=== PATIENT | female | born 1955 | race Caucasian/White ===

== ENCOUNTER 2017-02-15 09:02 | Outpatient (CLI) | payer OTHER ==
--- NOTE | 2017-02-15 11:58 | RAD ---
CERVICAL SPINE THREE VIEWS: History: Follow up. Comparison: None. FINDINGS: Open mouth odontoid view is normal. Satisfactory appearance of the ACDF hardware at C6-7 with normal location of the discectomy cage. Mild facet arthrosis at C5-6 and C6-7. No abnormal listhesis. IMPRESSION: Satisfactory appearance post ACDF at C6-7. POS: [facility]
== END 2017-02-15 09:03 | disposition home or self-care (01) ==
LOC: TBSIIMAG 09:02
PROVIDERS: ATTEND Neurological Surgery
DX: M54.12 Radiculopathy, cervical region (principal); Z98.1 Arthrodesis status
CPT/HCPCS: 72040

== ENCOUNTER 2017-05-20 11:07 | Emergency (ER) | payer OTHER ==
--- NOTE | 2017-05-20 11:43 | RAD ---
CHEST ONE VIEW: History: Chest pain. Comparison: 05-17-17 FINDINGS: Lungs are clear. No pneumothorax or effusion. Cardiac silhouette and mediastinal contours are within normal limits. IMPRESSION: No acute intrathoracic abnormality. POS: OFF
[2017-05-20 11:55] LABS: #Eosinphils 0.3 thou/uL (0.0-0.7); #Lymphocytes 1.8 thou/uL (1.20-3.40); #Monocytes 0.6 thou/uL (0.11-0.59); #Neutrophils 4.6 thou/uL (1.40-6.50); %Basophils 0.7 % (0.0-1.0); %Lymphocytes 25.2 % (21.0-51.0); %Monocytes 7.5 % (0.0-10.0); %Neutrophils 62.7 % (42.0-75.0); Hemoglobin 13.3 g/dL (12.0-16.0); Mean Corpuscular HGB CONC 32.8 g/dL (32.0-36.0); Mean Corpuscular Hemoglobin 33.1 pg (27.0-31.0); Mean Platelet Volume 5.8 fL (7.4-10.4); Platelet Count 423 thou/uL (130-400); RBC Distribution Width 10.8 % (11.5-14.5); Red Blood Cell (RBC) Count 4.01 mill/uL (4.20-5.40); White Blood Cell (WBC) Count 7.3 thou/uL (4.8-10.8)
[2017-05-20] MEDS ORDERED: Aspirin 325 MG TAB ONE (11:55)
[2017-05-20 12:16] LABS: ALT (SGPT) 13 U/L (8-55); AST (SGOT) 18 U/L (5-34); Albumin 4.3 g/dL (3.5-5.0); Alkaline Phosphatase 65 U/L (40-150); Anion Gap 14 mmol/L (10-20); BUN (Urea Nitrogen) 16 mg/dL (9.8-20.1); Bilirubin, Total 0.7 mg/dL (0.2-1.2); CK (CPK) 104 U/L (29-168); Calc. Creatinine Clearance 0 mL/min (70-130); Calcium 10.3 mg/dL (7.8-10.44); Carbon Dioxide 26 mmol/L (22-29); Chloride 104 mmol/L (98-107); Estimated GFR-MDRD 76; Glucose 100 mg/dL (70-105); Potassium 5.3 mmol/L (3.5-5.1); Protein, Total 7.3 g/dL (6.0-8.3); Sodium 139 mmol/L (136-145)
[2017-05-20 12:20] LABS: Troponin I Less than 0.010 ng/mL (< 0.028)
== END 2017-05-20 13:20 | disposition home or self-care (01) ==
LOC: ERS 11:07
DX: R07.9 Chest pain, unspecified (principal); Z79.899 Other long term (current) drug therapy
CPT/HCPCS: 36415; 71045; 80053; 82550; 82553; 84484; 85025; 93005; 94760

== ENCOUNTER 2017-05-31 09:41 | Outpatient (CLI) | payer OTHER ==
[2017-05-31] MEDS ORDERED: Iopamidol 370 76% 100 ML VIAL ONE (14:49)
== END 2017-05-31 09:42 | disposition home or self-care (01) ==
LOC: TBSIIMAG 09:41
PROVIDERS: ATTEND Internal Medicine Cardiovascular Disease
DX: R94.39 Abnormal result of other cardiovascular function study (principal); R06.09 Other forms of dyspnea
CPT/HCPCS: 75574

== ENCOUNTER 2017-05-31 11:36 | Outpatient (CLI) | payer OTHER | END 2017-05-31 11:37 | disposition home or self-care (01) | LOC: BICMAMMO 11:36 | PROVIDERS: ATTEND Family Medicine | DX: Z12.31 Encounter for screening mammogram for malignant neoplasm of breast (principal) | CPT/HCPCS: 77063; 77067 ==

== ENCOUNTER 2017-07-20 10:09 | Outpatient (CLI) | payer OTHER ==
[2017-07-20] MEDS ORDERED: ISOVUE-370 76%-LOCM 1 ML ONE (10:45)
== END 2017-07-20 10:10 | disposition home or self-care (01) ==
LOC: CT 10:09
PROVIDERS: ATTEND Internal Medicine Cardiovascular Disease
DX: R94.30 Abnormal result of cardiovascular function study, unspecified (principal)
CPT/HCPCS: 75574; 82565

== ENCOUNTER → 2018-02-15 | Day surgery (SDC) | payer OTHER | LOC: ENDO/OP 07:55 | PROVIDERS: ATTEND Internal Medicine Gastroenterology | DX: K21.9 Gastro-esophageal reflux disease without esophagitis (principal); S14.8XXA Injury of other specified nerves of neck, initial encounter; Z98.1 Arthrodesis status; Z79.899 Other long term (current) drug therapy; Z88.0 Allergy status to penicillin; Z88.6 Allergy status to analgesic agent | CPT/HCPCS: 91034 ==

== ENCOUNTER 2018-05-04 12:41 | Outpatient (CLI) | payer OTHER ==
[~2018-05-04 12:41] MED LIST: Iopamidol 370 76% 100 ML VIAL ONE
--- NOTE | 2018-05-04 15:50 | MRI ---
PRE AND POSTCONTRAST ENHANCED MRI IMAGES CERVICAL SPINE 05/04/18 HISTORY: Fusion. Neck pain. Numbness. Multiplanar and multisequence pre and postcontrast enhanced MRI images cervical spine obtained. Images demonstrate the spinal cord to be unremarkable with no evidence of masses or lesions. C1-2: Unremarkable. C2-3: There is a mild broad based disc bulge. The central canal and neural foramen are patent. C3-4: Disc desiccation seen. There is a broad based disc osteophyte complex centrally resulting in mi ld central stenosis. Mild right sided neural foraminal narrowing seen. The left neural foramen is pat ent. C4-5: Disc desiccation seen. There is a broad based disc osteophyte complex seen centrally compressin g the thecal sac resulting in moderate degree of central stenosis. There is severe bilateral C4-5 tanya ral foraminal narrowing due to uncovertebral osteophyte hypertrophy. C5-6: There is disc desiccation seen. There is a broad based disc osteophyte complex centrally compr essing the thecal sac resulting in moderate to severe central and lateral recess stenosis. There is m oderate severe bilateral C5-6 neural foraminal narrowing due to osteophyte encroachment. C6-7: ACDF is seen. The central canal and neural foramen are patent. C7-T1: Unremarkable. IMPRESSION: C4-5 and C5-6 central and neural foraminal narrowing as described above. POS: [facility]
== END 2018-05-04 12:42 | disposition home or self-care (01) ==
LOC: SCSMRI 12:41
PROVIDERS: ATTEND Neurological Surgery
DX: M54.12 Radiculopathy, cervical region (principal); M48.02 Spinal stenosis, cervical region
CPT/HCPCS: 72156; 82565; Q9967

== ENCOUNTER 2018-06-01 08:48 | Outpatient (CLI) | payer OTHER, SELFPAY ==
--- NOTE | 2018-06-01 09:20 | MMO ---
Bilateral MAMMO Bilat Screen [facility]. CLINICAL HISTORY: Patient is 62 years old and is seen for screening. The patient has no family history of breast cancer. The patient has no personal history of cancer. VIEWS: The views performed were: bilateral craniocaudal with tomosynthesis and bilateral mediolateral oblique with tomosynthesis. FILMS COMPARED: The present examination has been compared to prior imaging studies performed at [facility] on 05/31/2017, at [facility] on 04/07/2016, and at [facility] on 05/17/2012, 02/05/2014 and 03/17/2015. MAMMOGRAM FINDINGS: The breasts are heterogeneously dense, which could obscure a lesion on mammography. There are no suspicious masses, suspicious calcifications, or new areas of architectural distortion. IMPRESSION: THERE IS NO MAMMOGRAPHIC EVIDENCE OF MALIGNANCY. A ROUTINE FOLLOW-UP MAMMOGRAM IN 1 YEAR IS RECOMMENDED. THE RESULTS OF THIS EXAM WERE SENT TO THE PATIENT. ACR BI-RADS Category 1 - Negative MAMMOGRAPHY NOTE: 1. A negative mammogram report should not delay a biopsy if a dominant of clinically suspicious mass is present. 2. Approximately 10% to 15% of breast cancers are not detected by mammography. 3. Adenosis and dense breasts may obscure an underlying neoplasm.
== END 2018-06-01 08:49 | disposition home or self-care (01) ==
LOC: BICMAMMO 08:48
PROVIDERS: ATTEND Family Medicine
DX: Z12.31 Encounter for screening mammogram for malignant neoplasm of breast (principal)
CPT/HCPCS: 77063; 77067

== ENCOUNTER 2018-11-23 11:18 | Day surgery (SDC) | payer OTHER ==
[2018-11-22 12:00] VITALS: BMI 22.1
[2018-11-23] MEDS ORDERED: PROPOFOL 200 MG/20 ML VIAL ONE (15:03)
--- NOTE | 2018-11-23 21:23 | OP ---
DATE OF PROCEDURE: 11/23/2018 PROCEDURES PERFORMED: Colonoscopy with snare polypectomy and biopsy. PREPROCEDURE DIAGNOSIS: Average-risk colon cancer screening. POSTPROCEDURE DIAGNOSES: 1. Exam to cecum; good bowel preparation. 2. Diffusely redundant colon. 3. Diminutive sessile polyps (2-mm) in the proximal transverse colon, excised by cold biopsy forceps. 4. Diminutive sessile polyp in the descending colon, 2 mm in diameter, excised by cold biopsy forceps. 5. Small sessile polyp in the descending colon, 3 mm in diameter, excised by cold snare technique. 6. Small internal hemorrhoids. 7. Otherwise normal colonoscopy. PROCEDURE IN DETAIL: Written informed consent was obtained. The patient was brought to the endoscopy suite. Total intravenous anesthesia was administered by Dr. Vipul Phelan and associates. The patient was placed in the left lateral decubitus position. A digital rectal exam was performed that was unremarkable. A Pentax video colonoscope was then inserted through the anal canal and advanced under direct visualization to the cecum. Position in the cecum was verified by clear identification of the ileocecal valve and appendiceal orifice. The quality of the bowel preparation was good. Each colon segment was examined carefully as the colonoscope was slowly withdrawn from the cecum. Mild diffuse darkening of the colonic mucosa was noted throughout. Vascular pattern however appeared intact and normal. In the proximal transverse colon, a diminutive sessile polyp about 2-mm in diameter was identified and excised by cold biopsy forceps. A similar sized polyp was also noted in the descending colon and again excised with cold biopsy forceps. Both polyps were submitted to pathology. A third polyp was identified in the descending colon, approximately 3-mm in diameter and sessile. It was removed by cold snare technique. This tissue was also submitted to Pathology. In the rectum, a retroflexed view demonstrated small edematous internal hemorrhoids that were not actively bleeding. A hypertrophied anal papilla was also noted. The colon was decompressed as the colonoscope was removed from the patient. The patient was transferred to the Day Stay surgery area for postprocedure monitoring. There were no immediate complications. RECOMMENDATIONS: 1. Await pathology results. 2. Ask the patient to call me in 1 week for pathology results. 3. Pending pathology results, recommend surveillance colonoscopy in 5 years. 4. Follow up with GI as needed. Job ID: [id number]
== END 2018-11-23 14:40 | disposition home or self-care (01) ==
LOC: SDC 11:18
PROVIDERS: ATTEND Internal Medicine Gastroenterology
PROC: 0DBL8ZX Excision of Transverse Colon, Via Natural or Artificial Opening Endoscopic, Diagnostic (ICD-10-PCS; principal; 2018-11-23)
PROC: 0DBM8ZX Excision of Descending Colon, Via Natural or Artificial Opening Endoscopic, Diagnostic (ICD-10-PCS; principal; 2018-11-23)
DX: Z12.11 Encounter for screening for malignant neoplasm of colon (principal); D12.3 Benign neoplasm of transverse colon; D12.4 Benign neoplasm of descending colon; K64.4 Residual hemorrhoidal skin tags; K64.8 Other hemorrhoids; J30.81 Allergic rhinitis due to animal (cat) (dog) hair and dander; Z79.899 Other long term (current) drug therapy; Z88.0 Allergy status to penicillin; Z88.2 Allergy status to sulfonamides; Z88.6 Allergy status to analgesic agent
CPT/HCPCS: 88305; J2704

== ENCOUNTER 2018-11-24 13:14 | Outpatient (CLI) | payer OTHER ==
--- NOTE | 2018-11-24 15:13 | BD ---
DEXA BONE DENSITY EXAM: HISTORY: A 62-year-old postmenopausal female for screening. COMPARISON: 11/18/2009. FINDINGS: Lumbar Spine: BMD (g/cm2) L1 0.930 T-Score: -0.5 L2 0.987 T-Score: -0.4 L3 0.943 T-Score: -1.3 L4 0.940 T-Score: -1.1 L1-L4 0.950 T-Score: -0.9 Femoral Neck: 0.644 T-Score: -1.8 Total Femur: 0.806 T-Score: -1.1 Impression: Osteopenia. This patient has a 10-year WHO fracture risk for a major osteoporotic fracture of 8.8% a nd of a hip fracture 1.1%. POS: C
== END 2018-11-24 13:15 | disposition home or self-care (01) ==
LOC: BICMAMMO 13:14
PROVIDERS: ATTEND Family Medicine
DX: Z13.820 Encounter for screening for osteoporosis (principal); M85.89 Other specified disorders of bone density and structure, multiple sites
CPT/HCPCS: 77080

== ENCOUNTER 2019-11-29 13:36 | Outpatient (CLI) | payer OTHER ==
--- NOTE | 2019-11-29 14:11 | MMO ---
Bilateral MAMMO Bilat Screen [facility]. CLINICAL HISTORY: Patient is 63 years old and is seen for screening. The patient has no family history of breast cancer. The patient has no personal history of cancer. VIEWS: The views performed were: bilateral craniocaudal with tomosynthesis; bilateral mediolateral oblique with tomosynthesis; and bilateral exaggerated craniocaudal. FILMS COMPARED: The present examination has been compared to prior imaging studies performed at [facility] on 05/31/2017 and 06/01/2018, and at [facility] on 04/07/2016. This study has been interpreted with the assistance of computer-aided detection. MAMMOGRAM FINDINGS: The breasts are heterogeneously dense, which could obscure a lesion on mammography. There are no suspicious masses, suspicious calcifications, or new areas of architectural distortion. IMPRESSION: THERE IS NO MAMMOGRAPHIC EVIDENCE OF MALIGNANCY. A ROUTINE FOLLOW-UP MAMMOGRAM IN 1 YEAR IS RECOMMENDED. THE RESULTS OF THIS EXAM WERE SENT TO THE PATIENT. ACR BI-RADS Category 1 - Negative MAMMOGRAPHY NOTE: 1. A negative mammogram report should not delay a biopsy if a dominant of clinically suspicious mass is present. 2. Approximately 10% to 15% of breast cancers are not detected by mammography. 3. Adenosis and dense breasts may obscure an underlying neoplasm. Reported by: PAUL PRETTY MD Electonically Signed: [id number]
== END 2019-11-29 13:37 | disposition home or self-care (01) ==
LOC: BICMAMMO 13:36
PROVIDERS: ATTEND Family Medicine
DX: Z12.31 Encounter for screening mammogram for malignant neoplasm of breast (principal)
CPT/HCPCS: 77063; 77067

== ENCOUNTER 2020-02-27 15:26 | Outpatient (CLI) | payer OTHER ==
--- NOTE | 2020-02-27 16:13 | RAD ---
Cervical spine 3 views HISTORY: Neck pain. COMPARISON: 02/15/2017. FINDINGS: Vertebral body heights and alignment are maintained. Cervicothoracic junction is intact. An terior operative fixation at the C6-7 level without apparent hardware lucency. Osseous ingrowth of the disc space has increased. No acute fracture or dislocation. IMPRESSION : Postoperative changes, stable. No abnormalities are demonstrated.
--- NOTE | 2020-02-27 18:46 | RAD ---
THORACIC SPINE THREE VIEWS: 02/27/20 HISTORY: Thoracic spine pain. Mild scoliotic changes, S=shaped, involving the thoracolumbar vertebral column. Anterior cervical fus ion changes at C6-7. Minimal disc osteophytosis. No evidence for acute fracture or dislocation or foc al bone lesion. IMPRESSION: 1. Mild S-shaped scoliosis of the thoracolumbar vertebral column. 2. Thoracic spondylosis. 3. Anterior cervical fusion changes at C6-C7. POS: OFF
== END 2020-02-27 15:27 | disposition home or self-care (01) ==
LOC: BICRAD 15:26
PROVIDERS: ATTEND Family Medicine
DX: M54.12 Radiculopathy, cervical region (principal); M54.2 Cervicalgia; M41.85 Other forms of scoliosis, thoracolumbar region; M47.814 Spondylosis without myelopathy or radiculopathy, thoracic region; Z98.1 Arthrodesis status; Z98.890 Other specified postprocedural states
CPT/HCPCS: 72040; 72072

== ENCOUNTER 2020-12-04 15:15 | Outpatient (CLI) | payer OTHER | END 2020-12-04 15:16 | disposition home or self-care (01) | LOC: BICMAMMO 15:15 | PROVIDERS: ATTEND Family Medicine | DX: Z12.31 Encounter for screening mammogram for malignant neoplasm of breast (principal) | CPT/HCPCS: 77063; 77067 ==

== ENCOUNTER 2021-12-08 09:09 | Outpatient (CLI) | payer MEDICARE | END 2021-12-08 09:10 | disposition home or self-care (01) | LOC: BICMAMMO 09:09 | PROVIDERS: ATTEND Family Medicine | DX: Z12.31 Encounter for screening mammogram for malignant neoplasm of breast (principal) | CPT/HCPCS: 77063; 77067 ==

== ENCOUNTER 2022-05-10 08:59 | Outpatient (CLI) | payer MEDICARE | END 2022-05-10 09:00 | disposition home or self-care (01) | LOC: BICMAMMO 08:59 | PROVIDERS: ATTEND Family Medicine | DX: Z13.820 Encounter for screening for osteoporosis (principal); Z78.0 Asymptomatic menopausal state; M85.851 Other specified disorders of bone density and structure, right thigh; M85.852 Other specified disorders of bone density and structure, left thigh | CPT/HCPCS: 77080 ==

== ENCOUNTER 2022-12-20 12:31 | Outpatient (CLI) | payer MEDICARE | END 2022-12-20 12:32 | disposition home or self-care (01) | LOC: BICMAMMO 12:31 | PROVIDERS: ATTEND Family Medicine | DX: Z12.31 Encounter for screening mammogram for malignant neoplasm of breast (principal) | CPT/HCPCS: 77063; 77067 ==

== ENCOUNTER 2023-12-26 10:57 | Outpatient (CLI) | payer MEDICARE | END 2023-12-26 10:58 | disposition home or self-care (01) | LOC: BICMAMMO 10:57 | PROVIDERS: ATTEND Family Medicine | DX: Z12.31 Encounter for screening mammogram for malignant neoplasm of breast (principal) | CPT/HCPCS: 77063; 77067 ==

== ENCOUNTER 2024-12-26 08:12 | Outpatient (CLI) | payer MEDICARE, OTHER | END 2024-12-26 08:13 | disposition home or self-care (01) | LOC: BICMAMMO 08:12 | PROVIDERS: ATTEND Family Medicine | DX: Z12.31 Encounter for screening mammogram for malignant neoplasm of breast (principal); M81.0 Age-related osteoporosis without current pathological fracture; M85.851 Other specified disorders of bone density and structure, right thigh; M85.852 Other specified disorders of bone density and structure, left thigh | CPT/HCPCS: 77063; 77067; 77080 ==